=== PATIENT | female | born 2005 | race Caucasian/White ===

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

== ENCOUNTER 2023-01-10 23:21 | Emergency (ER) | payer MEDICAID ==
[~2023-01-10] VITALS: Ht 170.2 cm; Wt 56.3 kg
[2023-01-10 23:50] VITALS: TEMP 98.5
[2023-01-11 00:47] LABS: URINE HCG NEGATIVE (NEG)
[2023-01-11 00:56] LABS: BILIRUBIN,URINE NEGATIVE (Neg); CLARITY,URINE SLIGHTLY CLOUDY (Clear); COLOR,URINE YELLOW (Yellow); GLUCOSE, URINE NEGATIVE (Neg); KETONES,URINE TRACE mg/dl (Neg); LEUKOCYTE ESTERASE ,URINE NEGATIVE (Neg); NITRITES, URINE NEGATIVE (Neg); OCCULT BLOOD,URINE MODERATE (Neg); PH,URINE 7.5 (4.8-8.0); PROTEIN,URINE 30 mg/dl (Neg); UROBILINOGEN,URINE 0.2 E.U/dL (0.2-1.0)
[2023-01-11 01:03] LABS: UA COLLECTION TYPE CLN CATCH MIDSTREAM
[2023-01-11 01:06] LABS: BACTERIA,URINE NONE SEEN /HPF (Neg); MUCUS STRANDS MODERATE /LPF (Neg); RBC,URINE 20-50 /HPF (0-2); SQUAMOUS EPITHELIAL CELL,UR FEW /LPF (FEW); WBC,URINE 0-4 /HPF (0-4)
[2023-01-11] MEDS ORDERED: ibuprofen tablet 400 MG TABLET PO ONE (01:15)
[2023-01-11 01:31] VITALS: BP 122/86; PULSE 71; RESP 17; O2SAT 99
[2023-01-11] MEDS ORDERED: NO HOME MEDS (01:58)
--- NOTE | 2023-01-11 02:01 | NUR ---
us tech at bedside
[2023-01-12] MEDS ORDERED: NAPR-56 PO (23:32)
== END 2023-01-11 03:05 | disposition home or self-care (01) ==
LOC: ER 23:21
DX: N93.9 Abnormal uterine and vaginal bleeding, unspecified (principal); F17.200 Nicotine dependence, unspecified, uncomplicated; Z79.899 Other long term (current) drug therapy
CPT/HCPCS: 76830; 76856; 81001; 81025; 93976; 99284

== ENCOUNTER 2023-01-12 20:46 | Emergency (ER) | payer MEDICAID ==
[~2023-01-12] VITALS: Ht 170.2 cm; Wt 53.6 kg
[~2023-01-12 20:46] MED LIST: NO HOME MEDS
[2023-01-12 21:06] LABS: BILIRUBIN,URINE NEGATIVE (Neg); CLARITY,URINE SLIGHTLY CLOUDY (Clear); COLOR,URINE YELLOW (Yellow); GLUCOSE, URINE NEGATIVE (Neg); KETONES,URINE NEGATIVE (Neg); LEUKOCYTE ESTERASE ,URINE NEGATIVE (Neg); NITRITES, URINE NEGATIVE (Neg); OCCULT BLOOD,URINE LARGE (Neg); PH,URINE 7.5 (4.8-8.0); PROTEIN,URINE 30 mg/dl (Neg); UROBILINOGEN,URINE 0.2 E.U/dL (0.2-1.0)
[2023-01-12 21:07] LABS: URINE HCG NEGATIVE (NEG)
[2023-01-12 21:20] VITALS: BP 109/59; PULSE 60; O2SAT 100
[2023-01-12 21:23] LABS: UA COLLECTION TYPE CLN CATCH MIDSTREAM
[2023-01-12 21:25] LABS: MUCUS STRANDS NONE SEEN /LPF (Neg); SQUAMOUS EPITHELIAL CELL,UR MODERATE /LPF (FEW)
[2023-01-12 21:27] LABS: BACTERIA,URINE FEW /HPF (Neg); RBC,URINE TNTC /HPF (0-2); WBC,URINE 0-4 /HPF (0-4)
[2023-01-12 21:28] LABS: TRANSITIONAL EPI CELLS,URINE FEW /HPF
[2023-01-12 21:34] LABS: MONOCYTES # (AUTO) 0.3 X10'3 (0-0.9)
[2023-01-12 21:36] LABS: BASOPHILS % (AUTO) 1.1 % (0-1); EOSINOPHILS % (AUTO) 0.9 % (0-6); HEMATOCRIT 31.8 % (35.0-45.0); LYMPHOCYTES # (AUTO) 1.2 X10'3 (1.1-4.8); LYMPHOCYTES % (AUTO) 29.6 % (21-51); MEAN CORPUSCULAR HEMOGLOBIN 21.2 PG (27.0-31.0); MEAN CORPUSCULAR HGB CONC 31.4 g/dL (33.0-36.5); MEAN CORPUSCULAR VOLUME 67.5 FL (78-98); MEAN PLATELET VOLUME 9.1 FL (7.4-10.4); MONOCYTES % (AUTO) 7.4 % (2-12); NEUTROPHILS # (AUTO) 2.4 X10'3 (1.8-7.7); PLATELET COUNT 267 X10'3 (140-440); RED BLOOD COUNT 4.71 X10'6 (4.20-5.60); WHITE BLOOD COUNT 3.9 X10'3 (4.5-11.0)
[2023-01-12 21:50] LABS: ALANINE AMINOTRANSFERASE 13 U/L (12-78); ALBUMIN 4.2 G/DL (3.4-5.0); ALBUMIN/GLOBULIN RATIO 1.2 (1.1-1.5); ALKALINE PHOSPHATASE 64 IU/L (20-180); ANION GAP 7 (8-16); ASPARTATE AMINO TRANSFERASE 16 U/L (10-37); BILIRUBIN,TOTAL 0.3 MG/DL (0.1-1.0); BLOOD UREA NITROGEN 7 MG/DL (7-18); BUN/CREATININE RATIO 9.3 (10.0-20.0); CALCIUM 9.2 MG/DL (8.5-10.1); CHLORIDE 105 MMOL/L (99-107); CREATININE 0.75 MG/DL (0.40-0.90); GLUCOSE 71 MG/DL (70-104); LIPASE 36 U/L (16-77); POTASSIUM 3.6 MMOL/L (3.5-5.1); SODIUM 139 MMOL/L (135-145); TOTAL PROTEIN 7.8 G/DL (6.4-8.2); eCRCL 102 ML/MIN; eGFR > 90 ML/MIN
[2023-01-12 22:25] LABS: ACANTHOCYTES 1+; ANISOCYTOSIS 1+; ELLIPTOCYTES 1+; MICROCYTOSIS 2+; PLATELET ESTIMATE NORMAL
[2023-01-12] MEDS ORDERED: ketorolac trometh. 30mg/ml inj. IV ONE (23:25)
[2023-01-12] MEDS ORDERED: ketorolac tromethamine 15mg/ml inj. IM ONE ×2 (23:28→23:46)
[2023-01-12] MEDS ORDERED: NAPR-56 PO (23:32)
[2023-01-12 23:49] VITALS: RESP 14; TEMP 98.5
== END 2023-01-12 23:51 | disposition home or self-care (01) ==
LOC: ER 20:47
DX: N92.0 Excessive and frequent menstruation with regular cycle (principal); D64.9 Anemia, unspecified
CPT/HCPCS: 36415; 80053; 81001; 81025; 83690; 85008; 85025; 99283